=== PATIENT | female | born 1955 | race Hispanic/Latino ===

== ENCOUNTER 2017-11-04 13:34 | Outpatient (CLI) | payer OTHER | END 2017-11-04 13:35 | disposition home or self-care (01) | LOC: BICMAMMO 13:34 | PROVIDERS: ATTEND Family Medicine | DX: Z12.31 Encounter for screening mammogram for malignant neoplasm of breast (principal); R92.1 Mammographic calcification found on diagnostic imaging of breast | CPT/HCPCS: 77067 ==

== ENCOUNTER 2019-10-18 10:15 | Outpatient (CLI) | payer OTHER ==
--- NOTE | 2019-10-18 13:28 | ULT ---
RENAL ULTRASOUND: HISTORY: Followup of renal cysts. COMPARISON: A 11/11/2011 CT examination. FINDINGS: Real-time imaging of the right and left kidneys was performed. The right kidney measures 11.8 cm and the left kidney measures 11.5 cm in size. No cyst, mass, or obstruction. The cystic area within th e right kidney noted on the previous exam is not appreciated on today's ultrasound. Bladder region a ppears unremarkable. Fatty changes of the liver are noted. IMPRESSION: 1. Fatty change of the liver. 2. The complex right renal cyst noted on a previous 2012 CT is not definitely visualized on today's exam. If the patient has hematuria, then I would suggest consideration for CT for followup to assess for any change in size of the right renal lesion. POS: NATY
== END 2019-10-18 10:16 | disposition home or self-care (01) ==
LOC: BICULT 10:15
PROVIDERS: ATTEND Family Medicine
DX: N28.89 Other specified disorders of kidney and ureter (principal); K76.0 Fatty (change of) liver, not elsewhere classified
CPT/HCPCS: 76770

== ENCOUNTER 2021-01-29 06:46 | Outpatient (CLI) | payer OTHER | END 2021-01-29 06:47 | disposition home or self-care (01) | LOC: BICULT 06:46 | PROVIDERS: ATTEND Family Medicine | DX: N28.89 Other specified disorders of kidney and ureter (principal); R93.2 Abnormal findings on diagnostic imaging of liver and biliary tract | CPT/HCPCS: 93975 ==